=== PATIENT | female | born 1980 | race Caucasian/White ===

== ENCOUNTER → 2017-02-10 | Outpatient (CLI) | payer MEDICARE, MEDICAID ==
[~2017-02-10] MED LIST: CLEOCIN HC150 MG/CAP PO; DEPAKOTE 250MG250 MG PO; DEPAKOTE500 MG PO; KEPPRA 500MG500 MG PO; VALIUM 5MG T5 MG/TAB PO; VIMPAT100 MG PO
[2017-02-10 12:08] LABS: BASO % 0.4 % (0.0-2.0); EOS # 0.1 (0.0-0.7); EOS % 1.2 % (0-4.0); GRAN # 2.1 (1.4-6.5); GRAN % 42.8 % (42.2-75.2); HEMATOCRIT 37.6 % (37.0-47.0); HEMOGLOBIN 12.9 g/dl (12.5-16.0); LYMPH # 2.3 (1.2-3.4); LYMPH % 45.5 % (20.0-51.0); MEAN CELL VOLUME 93 fl (80.0-100.0); MEAN CORPUSCULAR HEMOGLOBIN 32 pg (27.0-31.0); MEAN CORPUSCULAR HGB CONC 34 g/dl (33.0-37.0); MEAN PLATELET VOLUME 11.3 fl (7.4-10.4); MONO # 0.5 (0.1-0.6); MONO % 9.7 % (1.7-9.3); PLATELET COUNT 180 K/mm3 (130-400); RED BLOOD COUNT 4.05 M/mm3 (4.10-5.30); REDCELL DISTRIBUTION WIDTH-CV 12.7 % (11.5-14.5); WHITE BLOOD COUNT 4.9 K/mm3 (4.8-10.8)
[2017-02-10 12:46] LABS: ADJUSTED CALCIUM 9.4 mg/dL (8.4-10.2); ALBUMIN 3.8 gm/dL (3.5-5.0); BILIRUBIN,TOTAL 0.3 mg/dL (0.0-1.0); CALCIUM 9.2 mg/dL (8.4-10.2); CREATININE, serum 0.39 mg/dL (0.52-1.25); POTASSIUM 4.1 mmol/L (3.4-5.0); TOTAL PROTEIN 7.6 gm/dL (6.4-8.2)
== END ==
LOC: COL.LAB 10:51
PROVIDERS: Psychiatry & Neurology Neurology
DX: Z01.89 Encounter for other specified special examinations (principal)

== ENCOUNTER 2018-10-01 12:47 | Emergency (ER) | payer MEDICARE, MEDICAID ==
[~2018-10-01] VITALS: Wt 34.1 kg
[2018-10-01 12:52] VITALS: TEMP 97.2
[2018-10-01] MEDS ORDERED: DEPAKOTE 250MG250 MG PO (13:01)
[2018-10-01] MEDS ORDERED: DEPAKOTE500 MG PO (13:02)
[2018-10-01] MEDS ORDERED: COLACE 100100 MG/CAP PO (13:02)
[2018-10-01] MEDS ORDERED: VALIUM 5MG T5 MG/TAB PO (13:02)
[2018-10-01] MEDS ORDERED: BRIVIACT100 MG PO (13:02)
[2018-10-01 15:33] VITALS: BP 110/83; PULSE 103
== END 2018-10-01 15:33 | disposition home or self-care (01) ==
LOC: COL.ER 12:47
DX: K56.41 Fecal impaction (principal)